=== PATIENT | female | born 1940 | race Caucasian/White ===

== ENCOUNTER 2016-11-20 18:02 | Emergency (ER) | payer MEDICARE, BC ==
[2016-11-20] MEDS ORDERED: Sodium Chloride 0.9% 10 ML Syringe FLUSH PRN (18:45)
[2016-11-20] MEDS ORDERED: Aspirin 81 MG Tab.Chew ONE (18:49)
[2016-11-20] MEDS ORDERED: Aspirin 81 MG Tab.EC PO ONE (18:50)
[2016-11-20] MEDS ORDERED: Aspirin 81 MG Tab.Chew PO ONE ×2 (18:50→19:02)
--- NOTE | 2016-11-20 20:05 | EDM.PDOC ---
ED HISTORY OF PRESENT ILLNESS - General Chief Complaint: Chest Pain Stated Complaint: CHEST PAIN,LEFT ARM Time Seen by Provider: 11/20/16 18:05 Source: Reports: Patient, Family History Limitations: Reports: No limitations - History of Present Illness Symptom Onset Date: 11/20/16 Symptom Onset Time: 17:30 Timing/Duration: Reports: Hour(s): Severity: mild Location, General: Reports: chest, upper extremity, left Quality: Reports: Ache, Throbbing Improves with: Reports: None Worsens with: Reports: None, Other (Patient reports developing chest pressure/ pain with left arm pain after ambulating to the bathroom from the parking lot in [facility] today [employer].) Associated Symptoms: Reports: denies other symptoms Treatment(s) [employer]: Reports: Nitroglycerin Other Treatment(s) [employer]: Nitro x 2 - Related Data Allergies/ADRs: Allergies Allergy/AdvReac Type Severity Reaction Status Date / Time midazolam HCl [From Versed] Allergy Severe Cardiac Verified 11/20/16 18:23 Arrest Iodinated Contrast Media - Allergy Intermediate Hives Verified 11/20/16 18:23 Oral and [Iodinated Contrast Media - IV Dye] dipyridamole Allergy Cannot Verified 11/20/16 18:23 [From Persantine] Remember disopyramide phosphate Allergy Cannot Verified 11/20/16 18:23 [From Norpace] Remember morphine AdvReac Severe Change Verified 11/20/16 18:23 Mental Status Morpholine Analogues AdvReac Severe Delusions Verified 11/20/16 18:23 hydromorphone HCl AdvReac Intermediate Nausea and Verified 11/20/16 18:23 [From Dilaudid] Vomiting atorvastatin calcium AdvReac Muscle Verified 11/20/16 18:23 [From Lipitor] Aches bupropion HCl [From Zyban] AdvReac Hypertensio Verified 11/20/16 18:23 n niacin AdvReac Muscle Verified 11/20/16 18:23 Aches nifedipine AdvReac Muscle Verified 11/20/16 18:23 Aches procainamide AdvReac Muscle Verified 11/20/16 18:23 Aches rofecoxib [From Vioxx] AdvReac Nausea Verified 11/20/16 18:23 Home Meds: Home Meds Aspirin 81 mg PO QAM 04/29/13 [History] Calcitonin,Denton,Synthetic [Calcitonin-Denton] 1 spray RICHIE QAM 04/29/13 [ History] Rosuvastatin [Crestor] 40 mg PO BEDTIME 04/29/13 [History] Nitroglycerin [Nitrostat] 0.4 mg PO ASDIRECTED PRN 01/29/15 [History] Citalopram Hydrobromide [Celexa] 20 mg PO QAM 04/23/15 [History] Mv-Mn/FA/Vit K/Lycop/Lut/Zeaxa [Ocuvite Eye + Multi Tablet] 1 tab PO QAM [History] Ranitidine [Zantac] 150 mg PO BEDTIME #30 tablet 10/18/15 [Rx] Ferrous Sulfate [Slow Release Iron] 325 mg PO BID 03/07/16 [History] Furosemide 40 mg PO DAILY 03/07/16 [History] Lidocaine 5% [Lidoderm 5%] 1 patch TOP DAILY 03/07/16 [History] Polyethylene Glycol 3350 [MiraLAX] 17 g PO DAILY PRN 03/07/16 [History] Sennosides/Docusate Sodium [Sennalax-S] 1 tab PO DAILY PRN 03/07/16 [History] traMADol [Ultram] 50 mg PO BID 03/07/16 [History] Ondansetron [Zofran ODT] 4 mg PO Q8H PRN 06/03/16 [History] Warfarin Sodium 5 mg PO DAILY 06/03/16 [History] traMADol [Ultram] 50 mg PO Q6H PRN 06/03/16 [History] Acetaminophen [Acetaminophen Extra Strength] 1,000 mg PO Q8H PRN 09/19/16 [ History] Calcium Carbonate/Vitamin D3 [Calcium 600 + Vit D Tablet] 1 tab PO BID 09/19/16 [History] Melatonin 3 mg PO BEDTIME 09/19/16 [History] QUEtiapine [SEROquel] 25 mg PO BEDTIME 09/19/16 [History] guaiFENesin/Dextromethorphan [Mucus Relief DM] 1 tab PO Q4H PRN 09/19/16 [ History] Past Medical History HEENT History: Reports: Cataract, Impaired vision Cardiovascular History: Reports: Afib, Angina, Arrhythmia, CAD, Heart murmur, Heart valve replacement, High cholesterol, Hypertension, Pulmonary hypertension , Other (see below) Other Cardiovascular History: stenosis. Aortic valve replacement Respiratory History: Reports: Bronchitis, recurrent, COPD Other Respiratory History: continued tobacco use daily of 4+ cigarettes per day. Gastrointestinal History: Reports: Cholelithiasis, Diverticulosis, GERD, Irritable bowel syndrome Genitourinary History: Reports: Renal disease Other Genitourinary History: stage 3. renal lesion [employer] [place] History: Reports: Dysfunctional uterine bleeding, Musculoskeletal History: Reports: Arthritis, Back pain, chronic, Osteoarthritis , Osteoporosis, Other (see below) Other Musculoskeletal History: Bursitis. cervical pain. muscle spams in neck. 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 Psychiatric History: Reports: Anxiety Other Psychiatric History: family concerns about cognitive impairement Hematologic History: Reports: Anemia, Blood transfusion(s) - Infectious Disease History Infectious Disease History: Reports: Chicken pox, Mumps - Past Surgical History Head Surgeries/Procedures: Reports: None HEENT Surgical History: Reports: Cataract surgery, Oral surgery Other HEENT Surgeries/Procedures: full dentures Cardiovascular Surgical History: Reports: Carotid endarterectomy, Coronary artery bypass, Valve replacement Other Cardiovascular Surgeries/Procedures: CABG 2000 Respiratory Surgical History: Reports: None GI Surgical History: Reports: Appendectomy, Colon, Colonoscopy, EGD Female Surgical History: Reports: Hysterectomy, Salpingo-oophorectomy Neurological Surgical History: Reports: Lumbar spine Other Musculoskeletal Surgeries/Procedures:: Trigger point injections. Social & Family History - Family History Family Medical History: Noncontributory - Tobacco Use Smoking Status *Q: Current Every Day Smoker Years of Tobacco use: 60 Packs/Tins Daily: 0.5 Used Tobacco, but Quit: No Month Tobacco Last Used: 1 Second Hand Smoke Exposure: No - Caffeine Use Caffeine Use: Reports: Coffee Caffeine Use Comment: 10 cups daily - Alcohol Use Days Per Week of Alcohol Use: 0 - Recreational Drug Use Recreational Drug Use: No - Living Situation & Occupation Living situation: Reports: assisted living Occupation: retired ([place], [place] ED [facility] GENERAL - Review of Systems Review Of Systems: See Below Constitutional: Reports: fatigue. Denies: fever, chills, malaise, weakness, diaphoresis, weight loss, weight gain HEENT: Reports: No symptoms Respiratory: Reports: Shortness of Breath, Cough, Sputum, Other (with activity, sputum production clear). Denies: Wheezing Cardiovascular: Reports: Chest pain, Dyspnea on exertion, Edema. Denies: Lightheadedness, Orthopnea, Palpitations, PND, Syncope Endocrine: Reports: no symptoms GI/Abdominal: Reports: No symptoms : Reports: incontinence. Denies: discharge, dysuria, flank pain, frequency, hematuria, pain Musculoskeletal: Reports: shoulder pain, arm pain, other (Left shoulder,arm pain with chest pain. ) Skin: Reports: no symptoms Neurological: Reports: No Symptoms. Denies: Confusion, Dizziness, Headache, Numbness, Syncope Psychiatric: Reports: No symptoms Hematologic/Lymphatic: Reports: other (chronic anemia, history of blood transfusions on a monthly basis.) ED EXAM, GENERAL - Physical Exam Exam: See Below Exam Limited By: No limitations General Appearance: alert, WD/WN, no apparent distress Eye Exam: bilateral eye: normal inspection, PERRL Ears: normal external exam, normal canal, hearing grossly normal, normal TMs Nose: normal inspection, normal mucosa, no blood Throat/Mouth: Normal inspection, Normal lips, Normal teeth, Normal gums, Normal oropharynx, Normal voice, No airway compromise Head: atraumatic, normocephalic Neck: normal inspection, supple, non-tender, full range of motion Respiratory/Chest: no respiratory distress, lungs clear, no accessory muscle use , chest non-tender, other (faint crackles at the bases) Peripheral Pulses: 1+: radial (L), radial (R), dorsalis pedis (L), dorsalis pedis (R) GI/Abdominal: normal bowel sounds, soft, non tender, no organomegaly, no distention, no abnormal bruit, no mass Back Exam: normal inspection Extremities: normal inspection, non-tender, no pedal edema, normal capillary refill, other (Limited range of motion to bilateral upper arms, No trauma. ) Neurological: alert, oriented, CN II-XII intact, normal cognition, normal gait, no motor/sensory deficits Psychiatric: normal affect, normal mood Skin Exam: Warm, Dry, Intact, No rash, Pallor Lymphatic: no adenopathy EKG INTERPRETATION EKG Date: 11/20/16 Time: 18:36 Rhythm: NSR Rate (beats/min): 83 EKG Interpretation Comments: Slight changes to leads II, V5, V6 with increase in ST depression when compared to EKG on 10/16/15. EKG reviewed with Dr. Honeycutt. Course - Vital Signs Last Recorded V/S: Last Vital Signs Temp 95.2 C H 11/20/16 19:00 Pulse 83 11/20/16 20:42 Resp 16 11/20/16 19:46 BP 137/84 11/20/16 20:42 Pulse Ox 98 11/20/16 19:46 - Orders/Labs/Meds Orders: Active Orders 24 hr Category Date Time Status EKG Documentation Completion [RC] ASDIRECTED Care 11/20/16 18:25 Active EKG Documentation Completion [RC] ASDIRECTED Care 11/20/16 19:49 Active Chest 1V Frontal [CR] Stat Exams 11/20/16 18:41 Taken Sodium Chloride 0.9% [Saline Flush] Med 11/20/16 18:45 Active 10 ml FLUSH ASDIRECTED PRN Saline Lock Insert [OM.PC] Routine Oth 11/20/16 18:45 Ordered EKG 12 Lead [EK] Routine Ther 11/20/16 18:25 Ordered EKG 12 Lead [EK] Routine Ther 11/20/16 19:49 Ordered Medication Orders Sodium Chloride (Saline Flush) 10 ml FLUSH ASDIRECTED PRN PRN Reason: Keep Vein Open Last Admin: 11/20/16 20:46 Dose: 10 ml Labs: Laboratory Tests 11/20/16 11/20/16 11/20/16 Range/Units 18:49 18:49 18:49 WBC 11.0 (4.5-11.0) K/uL RBC 2.79 L (3.30-5.50) M/uL Hgb 8.8 L (12.0-15.0) g/dL Hct 27.1 L (36.0-48.0) % MCV 97 (80-98) fL MCH 32 H (27-31) pg MCHC 33 (32-36) % Plt Count 217 (150-400) K/uL Sodium (140-148) mmol/L Potassium (3.6-5.2) mmol/L Chloride (100-108) mmol/L Carbon Dioxide (21-32) mmol/L Anion Gap (5.0-14.0) mmol/L BUN (7-18) mg/dL Creatinine (0.6-1.0) mg/dL Est Cr Clr Drug Dosing mL/min Estimated GFR (MDRD) (>60) Glucose (74-106) mg/dL Calcium (8.5-10.1) mg/dL Total Bilirubin (0.2-1.0) mg/dL AST (15-37) U/L ALT (12-78) U/L Alkaline Phosphatase (46-116) U/L CK-MB (CK-2) 2.6 (0-3.6) mg/mL Troponin I 0.211 H* (0.000-0.056) ng/mL [id number] Pept (5-125) pg/mL Total Protein (6.4-8.2) g/dL Albumin (3.4-5.0) g/dL Globulin (2.3-3.5) g/dL Albumin/Globulin Ratio (1.2-2.2) 11/20/16 11/20/16 Range/Units 18:49 19:32 WBC (4.5-11.0) K/uL RBC (3.30-5.50) M/uL Hgb (12.0-15.0) g/dL Hct (36.0-48.0) % MCV (80-98) fL MCH (27-31) pg MCHC (32-36) % Plt Count (150-400) K/uL Sodium 132 L (140-148) mmol/L Potassium 3.8 (3.6-5.2) mmol/L Chloride 96 L (100-108) mmol/L Carbon Dioxide 27 (21-32) mmol/L Anion Gap 12.8 (5.0-14.0) mmol/L BUN 59 H D (7-18) mg/dL Creatinine 4.0 H* (0.6-1.0) mg/dL Est Cr Clr Drug Dosing 8.86 mL/min Estimated GFR (MDRD) 11 L (>60) Glucose 136 H (74-106) mg/dL Calcium 10.3 H D (8.5-10.1) mg/dL Total Bilirubin 0.7 (0.2-1.0) mg/dL AST 29 (15-37) U/L ALT 30 (12-78) U/L Alkaline Phosphatase 54 (46-116) U/L CK-MB (CK-2) (0-3.6) mg/mL Troponin I (0.000-0.056) ng/mL [id number] Pept [id number] H (5-125) pg/mL Total Protein 7.5 (6.4-8.2) g/dL Albumin 3.6 (3.4-5.0) g/dL Globulin 3.9 H (2.3-3.5) g/dL Albumin/Globulin Ratio 0.9 L (1.2-2.2) Meds: Medications Generic Name Dose Route Start Last Admin Trade Name Freq PRN Reason Stop Dose Admin Sodium Chloride 10 ml 11/20/16 18:45 11/20/16 20:46 Saline Flush FLUSH 10 ml ASDIRECTED PRN Administration Keep Vein Open Discontinued Medications Generic Name Dose Route Start Last Admin Trade Name Freq PRN Reason Stop Dose Admin Aspirin 81 mg 11/20/16 18:50 Aspirin PO 11/20/16 18:51 ONETIME ONE Aspirin 162 mg 11/20/16 18:50 Halfprin PO 11/20/16 18:51 ONETIME ONE Aspirin Confirm 11/20/16 18:49 11/20/16 20:46 Aspirin Administered 11/20/16 18:50 Not Given Dose 324 mg .ROUTE .STK-MED ONE Aspirin 324 mg 11/20/16 19:02 11/20/16 18:45 Aspirin PO 11/20/16 19:03 324 mg ONETIME ONE Administration Metoprolol Tartrate 25 mg 11/20/16 20:34 11/20/16 20:42 Lopressor PO 11/20/16 20:35 25 mg ONETIME ONE Administration - Re-Assessments/Exams Free Text/Narrative Re-Assessment/Exam: 11/20/16 20:39 Patient denies chest pain and reports improvement in left arm pain. Her labwork, chest x-ray and chronic status were reviewed with her, her daughter and Dr. Espino. The patient was advised to be admitted to the hospital for monitoring of chest pain, labwork. Rubina refuses, her daughter is aware. Dr. Espion informed of patient decision. Rubina will be given Metoprolol tartrate 25mg PO in the ER and provided a prescription for Metoprolol tartrate 25mg PO BID. She will follow up with Dr. Brennan as scheduled this coming . She was provided education on use of nitro SL for chest pain, signs and symptoms to watch for with worsening. Rubina and her daughter verbalized understanding. Rubina was offered hospital admission and monitoring a third time, she refused. She was instructed to return for any worsening, SOB, chest pain with radiation to arm, jaw, no relief with nitro SL or for any other concerns. She was strongly encouraged to stop use of tobacco. All questions answered. Departure - Departure Time of Disposition: 20:30 Disposition: Home, Self-Care 01 Preliminary Cause of *Q: sepsis & multi system organ failure Condition: fair Clinical Impression: CHF (congestive heart failure) Instructions: Nonspecific Chest Pain, [id number] Referrals: Nehemiah Brennan MD [Primary Care Provider] - Forms: ED Department Discharge Additional Instructions: Patient was instructed to stop use of tobacco. She needs to return for any worsening of symptoms, shortness of breath, or chest pain. Keep appointment with Dr. Brennan. Take Metoprolol tartrate 25mg PO twice per day. - My Orders Last 24 Hours: My Active Orders 11/20/16 18:25 EKG Documentation Completion [RC] ASDIRECTED EKG 12 Lead [EK] Routine 11/20/16 18:41 Chest 1V Frontal [CR] Stat 11/20/16 18:45 Sodium Chloride 0.9% [Saline Flush] 10 ml FLUSH ASDIRECTED PRN Saline Lock Insert [OM.PC] Routine 11/20/16 19:49 EKG Documentation Completion [RC] ASDIRECTED EKG 12 Lead [EK] Routine - Assessment/Plan Last 24 Hours: My Active Orders 11/20/16 18:25 EKG Documentation Completion [RC] ASDIRECTED EKG 12 Lead [EK] Routine 11/20/16 18:41 Chest 1V Frontal [CR] Stat 11/20/16 18:45 Sodium Chloride 0.9% [Saline Flush] 10 ml FLUSH ASDIRECTED PRN Saline Lock Insert [OM.PC] Routine 11/20/16 19:49 EKG Documentation Completion [RC] ASDIRECTED EKG 12 Lead [EK] Routine
[2016-11-20] MEDS ORDERED: Metoprolol Tartrate 25 MG Tab PO ONE (20:34)
[2016-11-20 20:42] VITALS: BP 137/84
--- NOTE | 2016-11-21 10:27 | CR ---
Portable chest Comparison: June 2016. Findings: There is cardiac enlargement. There is vascular engorgement. Small bilateral pleural effus ions are without significant change. Impression: 1. Mild CHF.
== END 2016-11-20 21:00 | disposition home or self-care (01) ==
LOC: JP.ED 18:02
DX: I50.9 Heart failure, unspecified (principal); I48.91 Unspecified atrial fibrillation; I25.10 Atherosclerotic heart disease of native coronary artery without angina pectoris; I20.9 Angina pectoris, unspecified; E78.00 Pure hypercholesterolemia, unspecified; I27.2 Other secondary pulmonary hypertension; J44.9 Chronic obstructive pulmonary disease, unspecified; K21.9 Gastro-esophageal reflux disease without esophagitis; F41.9 Anxiety disorder, unspecified; F17.210 Nicotine dependence, cigarettes, uncomplicated; Z86.73 Personal history of transient ischemic attack (TIA), and cerebral infarction without residual deficits; Z98.49 Cataract extraction status, unspecified eye; Z95.1 Presence of aortocoronary bypass graft; Z95.2 Presence of prosthetic heart valve; Z90.49 Acquired absence of other specified parts of digestive tract; Z90.710 Acquired absence of both cervix and uterus; Z90.721 Acquired absence of ovaries, unilateral; Z98.890 Other specified postprocedural states; Z79.82 Long term (current) use of aspirin; Z79.01 Long term (current) use of anticoagulants; Z79.899 Other long term (current) drug therapy; Z88.5 Allergy status to narcotic agent; Z88.8 Allergy status to other drugs, medicaments and biological substances; Z91.041 Radiographic dye allergy status
CPT/HCPCS: 36415; 71010; 80053; 82553; 83880; 84484; 85027; 93005; 99285; A9270; J7050; 93010; 99284

== ENCOUNTER 2017-04-21 15:57 | Inpatient (IN) | payer MEDICARE, BC, MEDICAID ==
[2017-04-21] MEDS ORDERED: Sodium Chloride 0.9% 10 ML Syringe FLUSH PRN (16:26)
[2017-04-21] MEDS ORDERED: Furosemide 40 MG/4 ML VIAL IVPUSH ONE (16:27)
--- NOTE | 2017-04-21 16:33 | EDM.PDOC ---
ED HPI GENERAL MEDICAL PROBLEM - General Chief Complaint: Respiratory Problem Stated Complaint: MEDICAL Time Seen by Provider: 04/21/17 16:25 Source of Information: Reports: Patient History Limitations: Reports: No Limitations - History of Present Illness INITIAL COMMENTS - FREE TEXT/NARRATIVE: pt arrived with increased sob and very low o2 sats. Onset: Gradual, Other ( worse today. ) Duration: Day(s): Location: Reports: Chest Associated Symptoms: Reports: Cough, Shortness of Breath - Related Data Allergies Allergy/AdvReac Type Severity Reaction Status Date / Time midazolam HCl [From Versed] Allergy Severe Cardiac Verified 04/21/17 17:14 Arrest Iodinated Contrast- Oral and Allergy Intermediate Hives Verified 04/21/17 17:14 IV Dye [Iodinated Contrast Media - IV Dye] dipyridamole Allergy Cannot Verified 04/21/17 17:14 [From Persantine] Remember disopyramide phosphate Allergy Cannot Verified 04/21/17 17:14 [From Norpace] Remember morphine AdvReac Severe Change Verified 04/21/17 17:14 Mental Status Morpholine Analogues AdvReac Severe Delusions Verified 04/21/17 17:14 hydromorphone HCl AdvReac Intermediate Nausea and Verified 04/21/17 17:14 [From Dilaudid] Vomiting atorvastatin calcium AdvReac Muscle Verified 04/21/17 17:14 [From Lipitor] Aches bupropion HCl [From Zyban] AdvReac Hypertensio Verified 04/21/17 17:14 n niacin AdvReac Muscle Verified 04/21/17 17:14 Aches nifedipine AdvReac Muscle Verified 04/21/17 17:14 Aches procainamide AdvReac Muscle Verified 04/21/17 17:14 Aches rofecoxib [From Vioxx] AdvReac Nausea Verified 04/21/17 17:14 Home Meds: Home Meds Aspirin 81 mg PO QAM 04/29/13 [History] Calcitonin,[place],Synthetic [Calcitonin-[place]] 1 spray RICHIE QAM 04/29/13 [ History] Rosuvastatin [Crestor] 40 mg PO BEDTIME 04/29/13 [History] Nitroglycerin [Nitrostat] 0.4 mg PO ASDIRECTED PRN 01/29/15 [History] Citalopram Hydrobromide [Celexa] 20 mg PO QAM 04/23/15 [History] Mv-Mn/FA/Vit K/Lycop/Lut/Zeaxa [Ocuvite Eye + Multi Tablet] 1 tab PO QAM [History] Ferrous Sulfate [Slow Release Iron] 325 mg PO BID 03/07/16 [History] Furosemide 40 mg PO BID 03/07/16 [History] Lidocaine 5% [Lidoderm 5%] 1 patch TOP DAILY 03/07/16 [History] Polyethylene Glycol 3350 [MiraLAX] 17 g PO DAILY PRN 03/07/16 [History] Sennosides/Docusate Sodium [Sennalax-S] 1 tab PO DAILY PRN 03/07/16 [History] Ondansetron [Zofran ODT] 4 mg PO Q8H PRN 06/03/16 [History] Warfarin Sodium 5 mg PO DAILY 06/03/16 [History] Acetaminophen [Acetaminophen Extra Strength] 1,000 mg PO Q8H PRN 09/19/16 [ History] Calcium Carbonate/Vitamin D3 [Calcium 600 + Vit D Tablet] 1 tab PO BID 09/19/16 [History] guaiFENesin/Dextromethorphan [Mucus Relief DM] 1 tab PO Q4H PRN 09/19/16 [ History] Acetaminophen with Codeine [Tylenol with Codeine #3 Tablet] 1 tab PO BID [History] Acetaminophen with Codeine [Tylenol with Codeine #3 Tablet] 1 tab PO Q4H PRN 08/16 [History] Midodrine 5 mg PO TIDAC 02/24/17 [History] Pentoxifylline [TRENtal] 400 mg PO DAILY 02/24/17 [History] Ranitidine HCl 150 mg PO DAILY 02/24/17 [History] Past Medical History HEENT History: Reports: Cataract, Impaired Vision Cardiovascular History: Reports: Afib, Angina, Arrhythmia, CAD, Heart Murmur, Heart Valve Replacement, High Cholesterol, Hypertension, Pulmonary Hypertension , Other (See Below) Other Cardiovascular History: stenosis. Aortic valve replacement Respiratory History: Reports: Bronchitis, Recurrent, COPD Other Respiratory History: continued tobacco use daily of 4+ cigarettes per day. Gastrointestinal History: Reports: Cholelithiasis, Diverticulosis, GERD, Irritable Bowel Syndrome Genitourinary History: Reports: Renal Disease Other Genitourinary History: stage 3. renal lesion [employer] History: Reports: Dysfunctional Uterine Bleeding, Musculoskeletal History: Reports: Arthritis, Back Pain, Chronic, Osteoarthritis , Osteoporosis, Other (See Below) Other Musculoskeletal History: Bursitis. cervical pain. muscle spams in neck. 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 Psychiatric History: Reports: Anxiety Other Psychiatric History: family concerns about cognitive impairement Hematologic History: Reports: Anemia, Blood Transfusion(s) - Infectious Disease History Infectious Disease History: Reports: Chicken Pox, Mumps - Past Surgical History Head Surgeries/Procedures: Reports: None HEENT Surgical History: Reports: Cataract Surgery, Oral Surgery Cardiovascular Surgical History: Reports: Carotid Endarterectomy, Coronary Artery Bypass, Valve Replacement Female Surgical History: Reports: Hysterectomy, Salpingo-Oophorectomy Neurological Surgical History: Reports: Lumbar Spine Social & Family History - Family History Family Medical History: Noncontributory - Tobacco Use Smoking Status *Q: Current Every Day Smoker Years of Tobacco use: 50 Packs/Tins Daily: 1 Used Tobacco, but Quit: No Month Tobacco Last Used: 1 Second Hand Smoke Exposure: No - Caffeine Use Caffeine Use: Reports: Coffee Caffeine Use Comment: 10 cups daily - Alcohol Use Days Per Week of Alcohol Use: 0 - Recreational Drug Use Recreational Drug Use: No - Living Situation & Occupation Living situation: Reports: Assisted Living Occupation: Retired ED ROS GENERAL - Review of Systems Review Of Systems: See Below Constitutional: Reports: No Symptoms HEENT: Reports: No Symptoms Respiratory: Reports: Shortness of Breath Cardiovascular: Reports: Palpitations Endocrine: Reports: No Symptoms GI/Abdominal: Reports: No Symptoms : Reports: No Symptoms Musculoskeletal: Reports: No Symptoms Skin: Reports: No Symptoms ED EXAM, GENERAL - Physical Exam Exam: See Below Free Text/Narrative:: pt arrived with increased sob and raising thick sputum. She had o2 sats in the 60s today. She has alittle extra swelling in her legs and she has been more sob. Exam Limited By: No Limitations General Appearance: Alert, Moderate Distress Ears: Normal TMs Nose: Normal Inspection Throat/Mouth: Normal Inspection Head: Atraumatic Neck: Other ( distended neck veinc,) Respiratory/Chest: Decreased Breath Sounds, Crackles Cardiovascular: Regular Rate, Rhythm GI/Abdominal: Soft, Non-Tender (Female) Exam: Deferred Rectal (Female) Exam: Deferred Back Exam: Normal Inspection Extremities: Normal Inspection Neurological: Alert, Oriented, Normal Cognition, Other (pt is quite sleepy ) Course - Vital Signs Last Recorded V/S: Last Vital Signs Temp 35.8 C 04/21/17 16:17 Pulse 57 L 04/21/17 16:17 Resp 14 04/21/17 16:17 BP 117/67 04/21/17 17:10 Pulse Ox 97 04/21/17 16:17 - Orders/Labs/Meds Orders: Active Orders 24 hr Category Date Time Status EKG Documentation Completion [RC] ASDIRECTED Care 04/21/17 16:28 Active Chest 2V [CR] Stat Exams 04/21/17 16:26 Taken ABG [BLOOD GAS ARTERIAL] [BG] Stat Lab 04/21/17 17:10 Ordered COMPREHENSIVE METABOLIC PN,CMP [CHEM] Urgent Lab 04/21/17 16:25 Received CULTURE RESPIRATORY + SMEAR [RM] Stat Lab 04/21/17 17:13 Received PRO B-TYPE NATRIUR PEPT,BNPPRO [CHEM] Urgent Lab 04/21/17 16:25 Received UA W/MICROSCOPIC [URIN] Urgent Lab 04/21/17 16:25 Uncollected Sodium Chloride 0.9% [Saline Flush] Med 04/21/17 16:26 Active 10 ml FLUSH ASDIRECTED PRN Saline Lock Insert [OM.PC] Routine Oth 04/21/17 16:26 Ordered EKG 12 Lead [EK] Routine Ther 04/21/17 16:28 Ordered Medication Orders Sodium Chloride (Saline Flush) 10 ml FLUSH ASDIRECTED PRN PRN Reason: Keep Vein Open Last Admin: 04/21/17 17:10 Dose: 10 ml Labs: Laboratory Tests 04/21/17 Range/Units 16:25 WBC 11.0 (4.5-11.0) K/uL RBC 2.88 L (3.30-5.50) M/uL Hgb 9.3 L (12.0-15.0) g/dL Hct 28.6 L (36.0-48.0) % MCV 99 H (80-98) fL MCH 32 H (27-31) pg MCHC 33 (32-36) % Plt Count 202 (150-400) K/uL Neut % (Auto) 86 H (36-66) % Lymph % (Auto) 6 L (24-44) % [place] % (Auto) 8 H (2-6) % Eos % (Auto) 0 L (2-4) % Baso % (Auto) 0 (0-1) % Meds: Medications Generic Name Dose Route Start Last Admin Trade Name Freq PRN Reason Stop Dose Admin Sodium Chloride 10 ml 04/21/17 16:26 04/21/17 17:10 Saline Flush FLUSH 10 ml ASDIRECTED PRN Administration Keep Vein Open Discontinued Medications Generic Name Dose Route Start Last Admin Trade Name Freq PRN Reason Stop Dose Admin Furosemide 60 mg 04/21/17 16:27 04/21/17 17:10 Lasix IVPUSH 04/21/17 16:28 60 mg ONETIME ONE Administration - Re-Assessments/Exams Free Text/Narrative Re-Assessment/Exam: 04/21/17 17:40 pt has a elevated bun and creatnine. Her face is puffy. She is coughing up some grayish sputum. Departure - Departure Time of Disposition: 17:51 Disposition: Admitted As Inpatient 68 Condition: Fair Clinical Impression: CHF (congestive heart failure), Pneumonia - Discharge Information Referrals: Nehemiah Brennan MD [Primary Care Provider] - Forms: ED Department Discharge Care Plan Goals: admit to Dr collier. - My Orders Last 24 Hours: My Active Orders 04/21/17 16:25 COMPREHENSIVE METABOLIC PN,CMP [CHEM] Urgent PRO B-TYPE NATRIUR PEPT,BNPPRO [CHEM] Urgent UA W/MICROSCOPIC [URIN] Urgent 04/21/17 16:26 Chest 2V [CR] Stat Sodium Chloride 0.9% [Saline Flush] 10 ml FLUSH ASDIRECTED PRN Saline Lock Insert [OM.PC] Routine 04/21/17 16:28 EKG Documentation Completion [RC] ASDIRECTED EKG 12 Lead [EK] Routine 04/21/17 17:10 ABG [BLOOD GAS ARTERIAL] [BG] Stat 04/21/17 17:13 CULTURE RESPIRATORY + SMEAR [RM] Stat - Assessment/Plan Last 24 Hours: My Active Orders 04/21/17 16:25 COMPREHENSIVE METABOLIC PN,CMP [CHEM] Urgent PRO B-TYPE NATRIUR PEPT,BNPPRO [CHEM] Urgent UA W/MICROSCOPIC [URIN] Urgent 04/21/17 16:26 Chest 2V [CR] Stat Sodium Chloride 0.9% [Saline Flush] 10 ml FLUSH ASDIRECTED PRN Saline Lock Insert [OM.PC] Routine 04/21/17 16:28 EKG Documentation Completion [RC] ASDIRECTED EKG 12 Lead [EK] Routine 04/21/17 17:10 ABG [BLOOD GAS ARTERIAL] [BG] Stat 04/21/17 17:13 CULTURE RESPIRATORY + SMEAR [RM] Stat
--- NOTE | 2017-04-21 20:18 | PCM.HP ---
H&P History of Present Illness - General Date of Service: 04/21/17 Admit Problem/Dx: Admission Diagnosis/Problem Admission Diagnosis/Problem Pneumonia Source of Information: Patient, Family (Daughter Wendi), Provider, RN History Limitations: Reports: No Limitations - History of Present Illness Onset of Symptoms: Reports: Gradual (over the past 3 days, worsen shortness of breath and chills) Duration of Symptoms: Reports: Day(s): (3) Location: Reports: Generalized Severity: Moderate Improves with: Reports: None Worsens with: Reports: Movement Associated Symptoms: Reports: Cough, Fever/Chills, Loss of Appetite, Shortness of Breath, Weakness - Related Data Allergies/Adverse Reactions: Allergies Allergy/AdvReac Type Severity Reaction Status Date / Time midazolam HCl [From Versed] Allergy Severe Cardiac Verified 04/21/17 17:14 Arrest Iodinated Contrast- Oral and Allergy Intermediate Hives Verified 04/21/17 17:14 IV Dye [Iodinated Contrast Media - IV Dye] dipyridamole Allergy Cannot Verified 04/21/17 17:14 [From Persantine] Remember disopyramide phosphate Allergy Cannot Verified 04/21/17 17:14 [From Norpace] Remember morphine AdvReac Severe Change Verified 04/21/17 17:14 Mental Status Morpholine Analogues AdvReac Severe Delusions Verified 04/21/17 17:14 hydromorphone HCl AdvReac Intermediate Nausea and Verified 04/21/17 17:14 [From Dilaudid] Vomiting atorvastatin calcium AdvReac Muscle Verified 04/21/17 17:14 [From Lipitor] Aches bupropion HCl [From Zyban] AdvReac Hypertensio Verified 04/21/17 17:14 n niacin AdvReac Muscle Verified 04/21/17 17:14 Aches nifedipine AdvReac Muscle Verified 04/21/17 17:14 Aches procainamide AdvReac Muscle Verified 04/21/17 17:14 Aches rofecoxib [From Vioxx] AdvReac Nausea Verified 04/21/17 17:14 Home Medications: Home Meds Aspirin 81 mg PO QAM 04/29/13 [History] Calcitonin,Gates,Synthetic [Calcitonin-Gates] 1 spray RICHIE QAM 04/29/13 [ History] Rosuvastatin [Crestor] 40 mg PO BEDTIME 04/29/13 [History] Nitroglycerin [Nitrostat] 0.4 mg PO ASDIRECTED PRN 01/29/15 [History] Citalopram Hydrobromide [Celexa] 20 mg PO QAM 04/23/15 [History] Mv-Mn/FA/Vit K/Lycop/Lut/Zeaxa [Ocuvite Eye + Multi Tablet] 1 tab PO QAM [History] Ferrous Sulfate [Slow Release Iron] 325 mg PO BID 03/07/16 [History] Furosemide 40 mg PO BID 03/07/16 [History] Lidocaine 5% [Lidoderm 5%] 1 patch TOP DAILY 03/07/16 [History] Polyethylene Glycol 3350 [MiraLAX] 17 g PO DAILY PRN 03/07/16 [History] Sennosides/Docusate Sodium [Sennalax-S] 1 tab PO DAILY PRN 03/07/16 [History] Ondansetron [Zofran ODT] 4 mg PO Q8H PRN 06/03/16 [History] Warfarin Sodium 5 mg PO DAILY 06/03/16 [History] Acetaminophen [Acetaminophen Extra Strength] 1,000 mg PO Q8H PRN 09/19/16 [ History] Calcium Carbonate/Vitamin D3 [Calcium 600 + Vit D Tablet] 1 tab PO BID 09/19/16 [History] guaiFENesin/Dextromethorphan [Mucus Relief DM] 1 tab PO Q4H PRN 09/19/16 [ History] Acetaminophen with Codeine [Tylenol with Codeine #3 Tablet] 1 tab PO BID [History] Acetaminophen with Codeine [Tylenol with Codeine #3 Tablet] 1 tab PO Q4H PRN 08/16 [History] Midodrine 5 mg PO TIDAC 02/24/17 [History] Pentoxifylline [TRENtal] 400 mg PO DAILY 02/24/17 [History] Ranitidine HCl 150 mg PO DAILY 02/24/17 [History] Past Medical History HEENT History: Reports: Cataract, Impaired Vision Cardiovascular History: Reports: Afib, Angina, Arrhythmia, CAD, Heart Murmur, Heart Valve Replacement, High Cholesterol, Hypertension, Pulmonary Hypertension , Other (See Below) Other Cardiovascular History: stenosis. Aortic valve replacement Respiratory History: Reports: Bronchitis, Recurrent, COPD Other Respiratory History: continued tobacco use daily of 4+ cigarettes per day. Gastrointestinal History: Reports: Cholelithiasis, Diverticulosis, GERD, Irritable Bowel Syndrome Genitourinary History: Reports: Renal Disease Other Genitourinary History: stage 3. renal lesion RESEARCH AND DEVELOPMENT RESEARCHER History: Reports: Dysfunctional Uterine Bleeding, Musculoskeletal History: Reports: Arthritis, Back Pain, Chronic, Osteoarthritis , Osteoporosis, Other (See Below) Other Musculoskeletal History: Bursitis. cervical pain. muscle spams in neck. 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 Psychiatric History: Reports: Anxiety Other Psychiatric History: family concerns about cognitive impairement Hematologic History: Reports: Anemia, Blood Transfusion(s) - Infectious Disease History Infectious Disease History: Reports: Chicken Pox, Mumps - Past Surgical History Head Surgeries/Procedures: Reports: None HEENT Surgical History: Reports: Cataract Surgery, Oral Surgery Cardiovascular Surgical History: Reports: Carotid Endarterectomy, Coronary Artery Bypass, Valve Replacement Female Surgical History: Reports: Hysterectomy, Salpingo-Oophorectomy Neurological Surgical History: Reports: Lumbar Spine Social & Family History - Family History Family Medical History: Noncontributory - Tobacco Use Smoking Status *Q: Current Every Day Smoker Years of Tobacco use: 50 Packs/Tins Daily: 1 Used Tobacco, but Quit: No Month Tobacco Last Used: 1 Second Hand Smoke Exposure: No - Caffeine Use Caffeine Use: Reports: Coffee Caffeine Use Comment: 10 cups daily - Alcohol Use Days Per Week of Alcohol Use: 0 - Recreational Drug Use Recreational Drug Use: No - Living Situation & Occupation Living situation: Reports: Assisted Living 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[employer], 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, has one Daughter and two Sons.) H&P Review of Systems - Review of Systems: Review Of Systems: See Below General: Reports: Chills, Malaise, Weakness HEENT: Reports: Glasses Pulmonary: Reports: Shortness of Breath, Wheezing, Pleuritic Chest Pain, Cough, Sputum Cardiovascular: Reports: Dyspnea on Exertion, Orthopnea, Edema (controlled with AIYANA hose) Gastrointestinal: Reports: No Symptoms Genitourinary: Reports: No Symptoms, Other (Kidney disease stage V) Musculoskeletal: Reports: No Symptoms Skin: Reports: No Symptoms Psychiatric: Reports: No Symptoms Neurological: Reports: No Symptoms Hematologic/Lymphatic: Reports: Anemia Immunologic: Reports: Other (multi medication allergies) Exam - Exam Exam: See Below - Vital Signs Vital Signs: Last Vital Signs Temp 35.8 C 04/21/17 16:17 Pulse 59 L 04/21/17 18:05 Resp 16 04/21/17 18:05 BP 119/62 04/21/17 18:05 Pulse Ox 95 04/21/17 18:05 Weight: 48.8 kg - Exam Quality Assessment: Supplemental Oxygen General: Alert, Cooperative, Mild Distress HEENT: PERRLA, Conjunctiva Clear, EOMI, Hearing Intact, Glasses Neck: Supple, Trachea Midline Lungs: Decreased Breath Sounds, Rales, Rhonchi, Wheezing Cardiovascular: Normal S1, Normal S2, Other (clicks noted from artificial valve) GI/Abdominal Exam: Normal Bowel Sounds, Soft, Non-Tender, Distended (Female) Exam: Deferred Rectal (Female) Exam: Deferred Back Exam: Normal Inspection, Full Range of Motion, Other (kyphosis) Extremities: Non-Tender, Other (compression stocking ) Peripheral Pulses: 2+: Radial (L), Radial (R) Skin: Warm, Dry, Intact Neurological: Reflexes Equal Bilateral, Strength Equal Bilateral, Normal Speech , Normal Tone Neuro Extensive - Mental Status: Alert, Normal Mood/Affect Psychiatric: Alert, Normal Affect, Normal Mood Physical Exam Comments:: This is a pleasant frail appearing female, cooperative, frequent harsh cough is noted with thick pale green sputum. she offers no complaints except for cough. - Patient Data Lab Results Last 24 hrs: Laboratory Results - last 24 hr 04/21/17 04/21/17 04/21/17 Range/Units 16:25 16:25 17:48 WBC 11.0 (4.5-11.0) K/uL RBC 2.88 L (3.30-5.50) M/uL Hgb 9.3 L (12.0-15.0) g/dL Hct 28.6 L (36.0-48.0) % MCV 99 H (80-98) fL MCH 32 H (27-31) pg MCHC 33 (32-36) % Plt Count 202 (150-400) K/uL Neut % (Auto) 86 H (36-66) % Lymph % (Auto) 6 L (24-44) % [place] % (Auto) 8 H (2-6) % Eos % (Auto) 0 L (2-4) % Baso % (Auto) 0 (0-1) % Puncture Site Lt radial ABG pH 7.339 L (7.350-7.450) ABG pCO2 46.0 H (35.0-42.0) mmHg ABG pO2 89.3 (75.0-100.0) mmHg ABG HCO3 24.1 (22.0-26.0) mmol/L ABG Total CO2 13.0 L (21.0-25.0) mmol/L ABG O2 Saturation 96.6 (95.0-98.0) % ABG O2 Content 22.7 (15.0-23.0) %vol ABG Base Excess -1.2 mm/L ABG Hemoglobin 9.8 L (12.0-16.0) g/dL ABG Oxyhemoglobin 93.2 % ABG Carboxyhemoglobin 2.8 H (0.0-1.6) % ABG Methemoglobin 0.7 % Chaka Test Passed O2 Delivery Device Nasal cannula Sodium 127 L (140-148) mmol/L Potassium 4.6 (3.6-5.2) mmol/L Chloride 90 L (100-108) mmol/L Carbon Dioxide 27 (21-32) mmol/L Anion Gap 14.6 H (5.0-14.0) mmol/L BUN 91 H* D (7-18) mg/dL Creatinine 5.1 H* (0.6-1.0) mg/dL Est Cr Clr Drug Dosing 6.85 mL/min Estimated GFR (MDRD) 8 L (>60) Glucose 97 (74-106) mg/dL Calcium 10.1 (8.5-10.1) mg/dL Total Bilirubin 0.7 (0.2-1.0) mg/dL AST 70 H D (15-37) U/L ALT 100 H (12-78) U/L Alkaline Phosphatase 129 H D (46-116) U/L NT-Pro-B Natriuret Pep [id number] H (5-450) pg/mL Total Protein 7.7 (6.4-8.2) g/dL Albumin 3.1 L (3.4-5.0) g/dL Globulin 4.6 H (2.3-3.5) g/dL Albumin/Globulin Ratio 0.7 L (1.2-2.2) Urine Color Urine Appearance Urine pH (4.5-8.0) Ur Specific [place] (1.008-1.030) Urine Protein (NEGATIVE) mg/dL Urine Glucose (UA) (NEGATIVE) mg/dL Urine Ketones (NEGATIVE) mg/dL Urine Occult Blood (NEGATIVE) Urine Nitrite (NEGATIVE) Urine Bilirubin (NEGATIVE) Urine Urobilinogen (NORMAL) mg/dL Ur Leukocyte Esterase (NEGATIVE) Urine RBC (0-5) Urine WBC (0-5) Ur Epithelial Cells Amorphous Sediment Urine Bacteria Urine Mucus 04/21/17 Range/Units 19:50 WBC (4.5-11.0) K/uL RBC (3.30-5.50) M/uL Hgb (12.0-15.0) g/dL Hct (36.0-48.0) % MCV (80-98) fL MCH (27-31) pg MCHC (32-36) % Plt Count (150-400) K/uL Neut % (Auto) (36-66) % Lymph % (Auto) (24-44) % [place] % (Auto) (2-6) % Eos % (Auto) (2-4) % Baso % (Auto) (0-1) % Puncture Site ABG pH (7.350-7.450) ABG pCO2 (35.0-42.0) mmHg ABG pO2 (75.0-100.0) mmHg ABG HCO3 (22.0-26.0) mmol/L ABG Total CO2 (21.0-25.0) mmol/L ABG O2 Saturation (95.0-98.0) % ABG O2 Content (15.0-23.0) %vol ABG Base Excess mm/L ABG Hemoglobin (12.0-16.0) g/dL ABG Oxyhemoglobin % ABG Carboxyhemoglobin (0.0-1.6) % ABG Methemoglobin % Chaka Test O2 Delivery Device Sodium (140-148) mmol/L Potassium (3.6-5.2) mmol/L Chloride (100-108) mmol/L Carbon Dioxide (21-32) mmol/L Anion Gap (5.0-14.0) mmol/L BUN (7-18) mg/dL Creatinine (0.6-1.0) mg/dL Est Cr Clr Drug Dosing mL/min Estimated GFR (MDRD) (>60) Glucose (74-106) mg/dL Calcium (8.5-10.1) mg/dL Total Bilirubin (0.2-1.0) mg/dL AST (15-37) U/L ALT (12-78) U/L Alkaline Phosphatase (46-116) U/L NT-Pro-B Natriuret Pep (5-450) pg/mL Total Protein (6.4-8.2) g/dL Albumin (3.4-5.0) g/dL Globulin (2.3-3.5) g/dL Albumin/Globulin Ratio (1.2-2.2) Urine Color Yellow Urine Appearance Cloudy Urine pH 6.0 (4.5-8.0) Ur Specific [place] 1.015 (1.008-1.030) Urine Protein 100 H (NEGATIVE) mg/dL Urine Glucose (UA) Normal (NEGATIVE) mg/dL Urine Ketones Negative (NEGATIVE) mg/dL Urine Occult Blood Large (NEGATIVE) Urine Nitrite Negative (NEGATIVE) Urine Bilirubin Negative (NEGATIVE) Urine Urobilinogen Normal (NORMAL) mg/dL Ur Leukocyte Esterase Moderate (NEGATIVE) Urine RBC 0-5 (0-5) Urine WBC 10-20 H (0-5) Ur Epithelial Cells Moderate Amorphous Sediment Moderate Urine Bacteria Few Urine Mucus Few Result Diagrams: 04/21/17 16:25 04/21/17 16:25 [place] Results Last 24 hrs: Microbiology 04/21/17 17:13 Gram Stain - Final Sputum - Expectorated *Q Meaningful Use (ADM) - VTE *Q VTE Criteria *Q: - Stroke *Q Stroke Criteria *Q: - AMI *Q AMI Criteria *Q: - Problem List (1) CKD (chronic kidney disease) stage 5, GFR less than 15 ml/min SNOMED Code(s): 770186925 ICD Code: N18.5 - CHRONIC KIDNEY DISEASE, STAGE 5 Status: Acute Priority : High Current Visit: Yes (2) CHF (congestive heart failure) SNOMED Code(s): 60430106 ICD Code: I50.9 - HEART FAILURE, UNSPECIFIED Status: Acute Priority: High Current Visit: Yes Qualifiers: Congestive heart failure type: unspecified congestive heart failure type Congestive heart failure chronicity: acute on chronic Qualified Code(s): I50.9 - Heart failure, unspecified (3) Pneumonia SNOMED Code(s): 556978449 ICD Code: J18.9 - PNEUMONIA, UNSPECIFIED ORGANISM Status: Acute Priority : High Current Visit: Yes Qualifiers: Laterality: right (4) Anemia due to chronic kidney disease SNOMED Code(s): 798161261 ICD Code: N18.9 - CHRONIC KIDNEY DISEASE, UNSPECIFIED; D63.1 - ANEMIA IN CHRONIC KIDNEY DISEASE Status: Acute Priority: High Current Visit: Yes Problem List Initiated/Reviewed/Updated: Yes Orders Last 24hrs: Active Orders 24 hr Category Date Time Status Patient Status Manage Transfer [TRANSFER] Routine ADT 04/21/17 19:44 Ordered EKG Documentation Completion [RC] ASDIRECTED Care 04/21/17 16:28 Active Chest 2V [CR] Stat Exams 04/21/17 16:26 Taken CULTURE BLOOD [BC] Urgent Lab 04/21/17 17:35 Received CULTURE BLOOD [BC] Urgent Lab 04/21/17 17:45 Received CULTURE RESPIRATORY + SMEAR [RM] Stat Lab 04/21/17 17:13 Results Sodium Chloride 0.9% [Saline Flush] Med 04/21/17 16:26 Active 10 ml FLUSH ASDIRECTED PRN Blood Culture x2 Reflex Set [OM.PC] Urgent Oth 04/21/17 17:49 Ordered Saline Lock Insert [OM.PC] Routine Oth 04/21/17 16:26 Ordered Resuscitation Status Routine Resus Stat 04/21/17 19:46 Ordered EKG 12 Lead [EK] Routine Ther 04/21/17 16:28 Ordered Medication Orders Sodium Chloride (Saline Flush) 10 ml FLUSH ASDIRECTED PRN PRN Reason: Keep Vein Open Last Admin: 04/21/17 17:10 Dose: 10 ml Assessment/Plan Comment:: ASSESSMENT / PLAN -This is a 77 Female present to ER via EMS with complaints of Shortness of Breath, low oxygen saturation. She report over the past 3 days worsen of breathing and increased cough. Has fatigue, chills, lack of appetite. EMS reports oxygen sat 60's, but recovered well with supplemental oxygen. Chest xray show infiltrate. LABS: sputum culture >20 WBC , numerous gram positive cocci pares, occasion gram positive and negative rods. Na+127, K+4.6, Cl90, anion gap 14.6, BUN 91, Cr. 5.1, Cr Clr 6.85, GFR 8, Glucose 97, Calcium 10.1, Total Bilirubin 0.7, AST 70, Alt 100, Alk Phos 129, Pro-BNP [id number], Total Protein 7.7, Albumin 3.1, Globulin 4.6, Albumin 3.1, albumin/globulin ration 0.7. Urine and ABG's She has a past history of Chronic Kidney Disease Stage IV, last CR 3.6 and GFR 13. Today increase in Cr. 5.1 GFR 8. Plan Pneumonia -Admit to ICU Med-Surg overflow for further monitoring -saline lock -IV Antibiotic; Levaquin 750mg IV once -Duonebs scheduled -Albuterol nebs every 4 hours prn shortness of breath, wheezing -Robitussin DM 10 ml every 4 hours prn cough -Advise to notify nurses of any chest pain or other symptoms -blood cultures x2 pending -And a.m. labs: CBC, BMP CKD stage V, GFR <10 -Lasix 40mg po bid -Family declines dialysis, requesting medical management Congestive Heart Failure -diuretics Lasix 60mg IV in ER -Telemetry -continuous oxygen via NC to keep sats>92% Anemia due to CKD -Iron po bid -recheck CBC, BMP in am Maintenance issues -Orders home meds: -Nutrition: Regular diet, Boost supplement daily -Chiang catheter not indicated at this time -DVT: current Coumadin Therapy -PPI; IV Protonix 40mg daily CODE STATUS: DNR/DNI, will discuss Comfort Care with MD in am Admission status: Admit to ICU Med-Surg overflow] Admission justification. This patient is admitted for inpatient services and is medically appropriate meeting medical necessity for inpatient admission as outlined in my documentation. I reasonably expect the patient will require inpatient services that span a period of over 2 midnights. I reasonably expect the patient to be discharged or transferred within 96 hours after admission to the critical access hospital. Disposition; Assisted Living or [facility] Primary care provider: Dr. Brennan Hospitalist: Dr. Espino
[2017-04-21] MEDS ORDERED: Levofloxacin/Dextrose 5%-Water 750 MG in Premix Bag 1 BAG IV ONE (20:47)
[2017-04-21] MEDS ORDERED: Polyethylene Glycol 3350 Powder 17 GM Packet PO PRN (20:47)
[2017-04-21] MEDS ORDERED: Ondansetron 4 MG/2 ML SDV IV PRN (20:47)
[2017-04-21] MEDS ORDERED: Bisacodyl 5 MG Tab PO PRN (20:47)
[2017-04-21] MEDS ORDERED: Ondansetron 4 MG Tab.DIS PO PRN (20:47)
[2017-04-21] MEDS ORDERED: Docusate Sodium 100 MG Cap PO PRN (20:47)
[2017-04-21] MEDS ORDERED: Acetaminophen/Codeine 300-30 MG Tab PO PRN (20:47)
[2017-04-21] MEDS ORDERED: guaiFENesin/Dextromethorphan 100-10 MG/5 ML Soln 10 ML Cup PO PRN (20:47)
[2017-04-21] MEDS ORDERED: Acetaminophen 325 MG Tab PO PRN (20:47)
[2017-04-21] MEDS ORDERED: Albuterol 0.083% 2.5 MG/3 ML Neb Soln NEB PRN (20:47)
[2017-04-21] MEDS ORDERED: Furosemide 20 MG Tab PO SCH (21:00)
[2017-04-21] MEDS: Acetaminophen/Codeine 300-30 MG Tab PO SCH (21:30)
[2017-04-21] MEDS ORDERED: Albuterol/Ipratropium 3.0-0.5 MG/3 ML Neb Soln NEB SCH (22:00)
[2017-04-22] MEDS: Albuterol/Ipratropium 3.0-0.5 MG/3 ML Neb Soln NEB SCH ×4 (07:06→20:30)
[2017-04-22] MEDS ORDERED: Furosemide 40 MG Tab PO SCH (08:00)
[2017-04-22] MEDS: Ferrous Sulfate 325 MG Tab PO SCH ×2 (08:24→16:34)
[2017-04-22] MEDS: Pentoxifylline 400 MG Tab.ER PO SCH (08:24)
[2017-04-22] MEDS: Midodrine 5 MG Tab PO SCH ×3 (08:24→16:34)
[2017-04-22] MEDS: Lidocaine 5% 700 MG Patch TOP SCH (08:25)
[2017-04-22] MEDS: Citalopram 20 MG Tab PO SCH (08:25)
[2017-04-22] MEDS: Pantoprazole 40 MG Vial IVPUSH SCH (08:25)
[2017-04-22] MEDS ORDERED: Bumetanide 1 MG/4 ML MDV IVPUSH ONE (08:37)
[2017-04-22] MEDS: Acetaminophen/Codeine 300-30 MG Tab PO SCH ×2 (08:46→20:30)
[2017-04-22] MEDS ORDERED: Bumetanide 2.5 MG/10 ML MDV IVPUSH ONE (09:00)
[2017-04-22] MEDS ORDERED: Warfarin 5 MG Tab PO SCH ×2 (09:00→13:00)
--- NOTE | 2017-04-22 09:55 | PCM.PN ---
- General Info Date of Service: 04/22/17 Functional Status: Reports: Pain Controlled, Tolerating Diet - Review of Systems General: Reports: Weakness. Denies: Fever, Chills Pulmonary: Reports: Shortness of Breath, Cough, Wheezing. Denies: Pleuritic Chest Pain, Sputum, Hemoptysis Cardiovascular: Reports: Dyspnea on Exertion. Denies: Chest Pain, Palpitations , Orthopnea, PND, Edema Gastrointestinal: Reports: No Symptoms Psychiatric: Reports: Confusion Systems Review Comment:: Ms. Middleton is a 77-year-old woman who is admitted through the emergency department last night with pulmonary edema, possible pneumonia, and end-stage renal failure. She has had ongoing difficulty with renal compromise, currently has stage V renal failure with an estimated GFR of 9. She does have a fistula in her right arm but apparently has decided previously not pursue dialysis. She is modestly improved since admission and with IV diuretics did have a modest diuresis. She is confused because of her underlying dementia. - Patient Data Vitals - Most Recent: Last Vital Signs Temp 97.5 F 04/22/17 08:13 Pulse 63 04/22/17 08:13 Resp 16 04/22/17 08:13 BP 97/56 L 04/22/17 08:13 Pulse Ox 96 04/22/17 08:13 Weight - Most Recent: 107 lb 9.369 oz I&O - Last 24 Hours: Intake & Output 04/21/17 04/22/17 04/22/17 22:59 06:59 14:59 Intake Total 510 Output Total 300 800 Balance -300 -290 Lab Results Last 24 Hours: Laboratory Results - last 24 hr 04/21/17 04/22/17 04/22/17 Range/Units 19:50 05:44 05:44 WBC 8.2 (4.5-11.0) K/uL RBC 2.50 L (3.30-5.50) M/uL Hgb 8.4 L (12.0-15.0) g/dL Hct 24.8 L (36.0-48.0) % MCV 99 H (80-98) fL MCH 34 H (27-31) pg MCHC 34 (32-36) % Plt Count 196 (150-400) K/uL Neut % (Auto) 84 H (36-66) % Lymph % (Auto) 7 L (24-44) % [place] % (Auto) 8 H (2-6) % Eos % (Auto) 0 L (2-4) % Baso % (Auto) 0 (0-1) % Sodium 127 L (140-148) mmol/L Potassium 4.2 (3.6-5.2) mmol/L Chloride 91 L (100-108) mmol/L Carbon Dioxide 25 (21-32) mmol/L Anion Gap 15.2 H (5.0-14.0) mmol/L BUN 90 H* (7-18) mg/dL Creatinine 4.9 H* (0.6-1.0) mg/dL Est Cr Clr Drug Dosing 7.12 mL/min Estimated GFR (MDRD) 9 L (>60) Glucose 87 (74-106) mg/dL Calcium 9.3 (8.5-10.1) mg/dL Urine Color Yellow Urine Appearance Cloudy Urine pH 6.0 (4.5-8.0) Ur Specific [place] 1.015 (1.008-1.030) Urine Protein 100 H (NEGATIVE) mg/dL Urine Glucose (UA) Normal (NEGATIVE) mg/dL Urine Ketones Negative (NEGATIVE) mg/dL Urine Occult Blood Large (NEGATIVE) Urine Nitrite Negative (NEGATIVE) Urine Bilirubin Negative (NEGATIVE) Urine Urobilinogen Normal (NORMAL) mg/dL Ur Leukocyte Esterase Moderate (NEGATIVE) Urine RBC 0-5 (0-5) Urine WBC 10-20 H (0-5) Ur Epithelial Cells Moderate Amorphous Sediment Moderate Urine Bacteria Few Urine Mucus Few Med Orders - Current: Current Medications Acetaminophen (Tylenol) 650 mg PO Q4H PRN PRN Reason: Pain (Mild 1-3)/fever Acetaminophen/Codeine Phosphate (Tylenol With Codeine No.3 300mg/30mg) 1 tab PO BID [facility] Last Admin: 04/22/17 08:46 Dose: 1 tab Acetaminophen/Codeine Phosphate (Tylenol With Codeine No.3 300mg/30mg) 1 tab PO Q4H PRN PRN Reason: Pain Albuterol (Proventil Neb Soln) 2.5 mg NEB Q4H PRN PRN Reason: Shortness Of Breath/wheezing Albuterol/Ipratropium (Duoneb 3.0-0.5 Mg/3 Ml) 3 ml NEB QIDRT [facility] Last Admin: 04/22/17 07:06 Dose: 3 ml Bisacodyl (Dulcolax) 5 mg PO DAILY PRN PRN Reason: Constipation Citalopram Hydrobromide (Celexa) 20 mg PO DAILY [facility] Last Admin: 04/22/17 08:25 Dose: 20 mg Docusate Sodium (Colace) 100 mg PO BID PRN PRN Reason: Constipation Ferrous Sulfate (Ferrous Sulfate) 325 mg PO BIDMEALS [facility] Last Admin: 04/22/17 08:24 Dose: 325 mg Guaifenesin/Dextromethorphan (Robitussin Dm) 10 ml PO Q4H PRN PRN Reason: Cough Lidocaine (Lidoderm 5%) 700 mg TOP DAILY [facility] Last Admin: 04/22/17 08:25 Dose: 700 mg Midodrine (Midodrine) 5 mg PO TIDAC [facility] Last Admin: 04/22/17 08:24 Dose: 5 mg Miscellaneous Information (Remove Patch) 1 ea TRDERM BEDTIME [facility] Ondansetron HCl (Zofran Odt) 4 mg PO Q6H PRN PRN Reason: Nausea able to take PO Ondansetron HCl (Zofran) 4 mg IV Q4H PRN PRN Reason: Nausea/Vomiting Pantoprazole Sodium (Protonix Iv) 40 mg IVPUSH DAILY [facility] Last Admin: 04/22/17 08:25 Dose: 40 mg Pentoxifylline (Trental) 400 mg PO DAILY [facility] Last Admin: 04/22/17 08:24 Dose: 400 mg Polyethylene Glycol (Miralax) 17 gm PO DAILY PRN PRN Reason: Constipation Sodium Chloride (Saline Flush) 10 ml FLUSH ASDIRECTED PRN PRN Reason: Keep Vein Open Last Admin: 04/21/17 17:10 Dose: 10 ml Warfarin Sodium (Coumadin) 5 mg PO DAILY@1300 [facility] Discontinued Medications Albuterol/Ipratropium (Duoneb 3.0-0.5 Mg/3 Ml) 3 ml NEB QID [facility] Last Admin: 04/21/17 21:34 Dose: 3 ml Bumetanide (Bumex) 4 mg IVPUSH ONETIME ONE Stop: 04/22/17 09:01 Furosemide (Lasix) 60 mg IVPUSH ONETIME ONE Stop: 04/21/17 16:28 Last Admin: 04/21/17 17:10 Dose: 60 mg Furosemide (Lasix) 40 mg PO BID [facility] Last Admin: 04/21/17 21:30 Dose: 40 mg Furosemide (Lasix) 40 mg PO BIDDIURETIC [facility] Last Admin: 04/22/17 08:24 Dose: 40 mg Levofloxacin/Dextrose 750 mg/ (Premix) 150 mls @ 100 mls/hr IV ONETIME ONE Stop: 04/21/17 22:16 Last Admin: 04/21/17 21:25 Dose: 100 mls/hr Warfarin Sodium (Coumadin) 5 mg PO DAILY [facility] - Exam Quality Assessment: Supplemental Oxygen General: Alert, Cooperative, Mild Distress Lungs: Clear to Auscultation, Normal Respiratory Effort Cardiovascular: Regular Rate, Regular Rhythm, No Murmurs GI/Abdominal Exam: Normal Bowel Sounds, Soft, Non-Tender, No Organomegaly, No Distention Extremities: Non-Tender, No Pedal Edema Skin: Warm, Dry, Intact - Problem List Review Problem List Initiated/Reviewed/Updated: Yes - My Orders Last 24 Hours: My Active Orders 04/22/17 10:00 methylPREDNISolone Sod Succ [Solu-MEDROL] 40 mg IVPUSH Q12H 04/23/17 05:00 BASIC METABOLIC PANEL,BMP [CHEM] Timed CBC WITH AUTO DIFF [HEME] Timed - Plan Plan:: ASSESSMENT / PLAN Pneumonia-probable right lung infiltrate on chest x-ray, also component of fluid overload -saline lock -IV Antibiotic; Levaquin 750mg IV once, plan to start 500 mg IV every 48 hours tomorrow -Duonebs scheduled -Albuterol nebs every 4 hours prn shortness of breath, wheezing -Robitussin DM 10 ml every 4 hours prn cough -blood cultures x2 pending CKD stage V, GFR <10 -Bumex 4 mg IV today -Family declines dialysis, requesting medical management, will discuss further with family later today, consider comfort cares only Congestive Heart Failure-evidence of significant fluid overload and pulmonary edema on initial evaluation, complicated by her severe kidney dysfunction -Bumex 4 mg IV today -Telemetry -continuous oxygen via [place] to keep sats>92% Anemia due to CKD -Iron po bid -recheck CBC, BMP in am -Consider transfusion of one unit of red blood cells Maintenance issues -Orders home meds: -Nutrition: Regular diet, Boost supplement daily -Chiang catheter not indicated at this time -DVT: current Coumadin Therapy -PPI; IV Protonix 40mg daily CODE STATUS: DNR/DNI, will discuss Comfort Care with MD in am Admission status: Admit to ICU Med-Surg overflow] Admission justification. This patient is admitted for inpatient services and is medically appropriate meeting medical necessity for inpatient admission as outlined in my documentation. I reasonably expect the patient will require inpatient services that span a period of over 2 midnights. I reasonably expect the patient to be discharged or transferred within 96 hours after admission to the [facility]. Disposition; Assisted Living or Sn[facility] Primary care provider: Dr. Brennan Hospitalist: Dr. Espino
[2017-04-22] MEDS: methylPREDNISolone Sodium Succinate 40 MG/1 ML SDV IVPUSH SCH ×2 (10:48→21:49)
[2017-04-22] MEDS ORDERED: LORazepam 1 MG Tab PO PRN (21:12)
[2017-04-22] MEDS ORDERED: Haloperidol Lactate 5 MG/ML SDV IV PRN (21:17)
--- NOTE | 2017-04-22 21:28 | PCM.SN ---
- Free Text/Narrative Note: call from [address] [place] [address]; Mrs. Middleton is agitated, requesting to smoke a cigarette, wanting to leave, will take medication to relax her. a; tobacco dependence p; declines nicotine patch. will order Haldol 1 mg IV every 2 hours prn agitation. monitor closely. May need to adjust dose dependent on response to medication.
[2017-04-23] MEDS: Albuterol/Ipratropium 3.0-0.5 MG/3 ML Neb Soln NEB SCH ×3 (07:07→14:48)
[2017-04-23] MEDS: Midodrine 5 MG Tab PO SCH ×2 (07:32→10:44)
[2017-04-23] MEDS: Ferrous Sulfate 325 MG Tab PO SCH (07:32)
[2017-04-23 07:58] VITALS: BP 102/58
[2017-04-23] MEDS: Pentoxifylline 400 MG Tab.ER PO SCH (08:29)
[2017-04-23] MEDS: Pantoprazole 40 MG Vial IVPUSH SCH (08:29)
[2017-04-23] MEDS: Citalopram 20 MG Tab PO SCH (08:30)
[2017-04-23] MEDS: Lidocaine 5% 700 MG Patch TOP SCH (08:30)
[2017-04-23] MEDS: Acetaminophen/Codeine 300-30 MG Tab PO SCH (08:35)
[2017-04-23] MEDS: methylPREDNISolone Sodium Succinate 40 MG/1 ML SDV IVPUSH SCH (10:44)
[2017-04-23] MEDS ORDERED: Levofloxacin/Dextrose 5%-Water 500 MG in Premix Bag 1 BAG IV SCH (12:00)
[2017-04-23] MEDS ORDERED: Warfarin 2.5 MG Tab PO SCH (13:00)
--- NOTE | 2017-04-23 14:39 | PCM.DCSUM1 ---
Discharge Summary - Hospital Course Brief History: Ms. Middleton is a 77-year-old woman who was admitted through the emergency department with pulmonary edema and hypoxia secondary to COPD, pneumonia, CHF, and stage IV chronic kidney disease. - Discharge Data Discharge Date: 04/23/17 Discharge Disposition: Home, [facility] 06 Condition: Fair - Discharge Diagnosis/Problem(s) (1) Cystitis SNOMED Code(s): 25942593 ICD Code: N30.90 - CYSTITIS, UNSPECIFIED WITHOUT HEMATURIA Status: Acute Current Visit: Yes (2) Palliative care status SNOMED Code(s): 542891895 ICD Code: Z51.5 - ENCOUNTER FOR PALLIATIVE CARE Status: Acute Current Visit: Yes (3) CKD (chronic kidney disease) stage 5, GFR less than 15 ml/min SNOMED Code(s): 470497161 ICD Code: N18.5 - CHRONIC KIDNEY DISEASE, STAGE 5 Status: Acute Priority : High Current Visit: Yes (4) CHF (congestive heart failure) SNOMED Code(s): 24563648 ICD Code: I50.9 - HEART FAILURE, UNSPECIFIED Status: Acute Priority: High Current Visit: Yes Qualifiers: Congestive heart failure type: unspecified congestive heart failure type Congestive heart failure chronicity: acute on chronic Qualified Code(s): I50.9 - Heart failure, unspecified - Patient Summary/Data Hospital Course: Ms. Middleton is a 77-year-old woman with a known history of stage V chronic kidney disease, she is decided not to pursue dialysis and has been discharged from the care of her pulmonology physician. Over the past few weeks she has lost strength and become more short of breath with progressive weakness. She was brought in for evaluation because of hypoxia identified at her assisted living facility. Chest x-ray showed evidence of pulmonary edema as well as a probable infiltrate, white blood cell count has been normal and she is had not had significant temperature elevation. There was also question of possible urinary tract infection. Her creatinine at the time of admission was 5.2 with a GFR of 8. She was given IV diuretic therapy in the emergency department and started on IV antibiotic therapy with levofloxacin. Because of evidence of COPD exacerbation related to the infection she was given nebulizer therapy and also started on IV Solu-Medrol. Symptomatically she improved significantly with these interventions she was given a dose of IV diuretic therapy the following day as well. She continued to experience hypoxia but denied symptoms of shortness of breath. Hospital course was complicated by her dementia and intermittent episodes of agitation. I discussed ongoing care with her daughter who is the healthcare power of office administrative assistant. Patient is unable to make decisions for herself because of significant dementia. Daughter has requested a palliative care approach, it is not yet ready to consider hospice admission. She will be discharged home with supplemental oxygen. She has been on long-term anticoagulation with warfarin, INR was supratherapeutic at the time of admission , but was within desired range on discharge. Dose of warfarin will be decreased to 2.5 mg by mouth daily as long as she is on the levofloxacin and a follow-up INR will need to be obtained on April 25. The time of discharge we will discontinue her oral furosemide and she will go home on Bumex 4 mg by mouth daily. Levofloxacin will be continued for an additional 4 days, 500 mg every other day. She will be discharged with nebulizer therapy duo nebs every 4 hours as needed and prednisone 40 mg daily for 4 days. Home care will be arranged for her at the time of discharge with home physical therapy and occupational therapy. Activity will be as tolerated and she is encouraged to follow a low-sodium diet. Follow-up appointment will be scheduled with her primary care provider within one week. - Patient Instructions Diet: Low Sodium Activity: As Tolerated Other/Special Instructions: Schedule follow-up with primary care within 1 week. Please arrange for home care with home physical therapy and occupational therapy after discharge. Please arrange for home oxygen 3 L/m via nasal cannula. Patient should continue lower dose of warfarin at 2.5 mg daily until after she is completed Lovenox therapy. Please schedule INR to be checked on April 25. - Discharge Plan Prescriptions/Med Rec: Albuterol/Ipratropium [DuoNeb 3.0-0.5 MG/3 ML] 3 ml INH Q4H PRN #120 neb PRN Reason: Dyspnea Bumetanide [Bumex] 4 mg PO DAILY #60 tablet Levofloxacin [Levaquin] 500 mg PO Q48H #2 tablet Prednisone [IJD: predniSONE] 40 mg PO WITHBREAKFAST #8 tab Home Medications: Home Meds Aspirin 81 mg PO QAM 04/29/13 [History] Calcitonin,Nu [place],Synthetic [Calcitonin-Nu Mine] 1 spray RICHIE QAM 04/29/13 [ History] Rosuvastatin [Crestor] 40 mg PO BEDTIME 04/29/13 [History] Nitroglycerin [Nitrostat] 0.4 mg PO ASDIRECTED PRN 01/29/15 [History] Citalopram Hydrobromide [Celexa] 20 mg PO QAM 04/23/15 [History] Mv-Mn/FA/Vit K/Lycop/Lut/Zeaxa [Ocuvite Eye + Multi Tablet] 1 tab PO QAM [History] Ferrous Sulfate [Slow Release Iron] 325 mg PO BID 03/07/16 [History] Lidocaine 5% [Lidoderm 5%] 1 patch TOP DAILY 03/07/16 [History] Polyethylene Glycol 3350 [MiraLAX] 17 g PO DAILY PRN 03/07/16 [History] Sennosides/Docusate Sodium [Sennalax-S] 1 tab PO DAILY PRN 03/07/16 [History] Ondansetron [Zofran ODT] 4 mg PO Q8H PRN 06/03/16 [History] Acetaminophen [Acetaminophen Extra Strength] 1,000 mg PO Q8H PRN 09/19/16 [ History] Calcium Carbonate/Vitamin D3 [Calcium 600 + Vit D Tablet] 1 tab PO BID 09/19/16 [History] guaiFENesin/Dextromethorphan [Mucus Relief DM] 1 tab PO Q4H PRN 09/19/16 [ History] Acetaminophen with Codeine [Tylenol with Codeine #3 Tablet] 1 tab PO BID [History] Acetaminophen with Codeine [Tylenol with Codeine #3 Tablet] 1 tab PO Q4H PRN 08/16 [History] Midodrine 5 mg PO TIDAC 02/24/17 [History] Pentoxifylline [TRENtal] 400 mg PO DAILY 02/24/17 [History] Ranitidine HCl 150 mg PO DAILY 02/24/17 [History] Albuterol/Ipratropium [DuoNeb 3.0-0.5 MG/3 ML] 3 ml INH Q4H PRN #120 neb [Rx] Bumetanide [Bumex] 4 mg PO DAILY #60 tablet 04/23/17 [Rx] Levofloxacin [Levaquin] 500 mg PO Q48H #2 tablet 04/23/17 [Rx] Prednisone [IJD: predniSONE] 40 mg PO WITHBREAKFAST #8 tab 04/23/17 [Rx] Warfarin [Coumadin] 2.5 mg PO DAILY@1300 tablet 04/23/17 [Rx] Referrals: Nehemiah Brennan MD [Primary Care Provider] - - Patient Data Vitals - Most Recent: Last Vital Signs Temp 96.3 F 04/23/17 07:55 Pulse 66 04/23/17 10:51 Resp 16 04/23/17 07:55 BP 102/58 L 04/23/17 07:55 Pulse Ox 93 L 04/23/17 13:34 Weight - Most Recent: 107 lb 9.369 oz I&O - Last 24 hours: Intake & Output 04/22/17 04/23/17 04/23/17 22:59 06:59 14:59 Intake Total 880 660 Output Total 1450 650 Balance -570 -650 660 Lab Results - Last 24 hrs: Laboratory Results - last 24 hr 04/23/17 04/23/17 04/23/17 Range/Units 05:52 05:52 05:52 WBC 8.9 (4.5-11.0) K/uL RBC 2.64 L (3.30-5.50) M/uL Hgb 8.6 L (12.0-15.0) g/dL Hct 25.7 L (36.0-48.0) % MCV 97 (80-98) fL MCH 33 H (27-31) pg MCHC 34 (32-36) % Plt Count 212 (150-400) K/uL Neut % (Auto) 95 H (36-66) % Lymph % (Auto) 3 L (24-44) % [place] % (Auto) 2 (2-6) % Eos % (Auto) 0 L (2-4) % Baso % (Auto) 0 (0-1) % PT 27.1 H (9.5-12.0) sec INR 2.44 H (0.80-1.20) Sodium 127 L (140-148) mmol/L Potassium 4.0 (3.6-5.2) mmol/L Chloride 90 L (100-108) mmol/L Carbon Dioxide 28 (21-32) mmol/L Anion Gap 13.0 (5.0-14.0) mmol/L BUN 89 H* (7-18) mg/dL Creatinine 4.8 H* (0.6-1.0) mg/dL Est Cr Clr Drug Dosing 7.27 mL/min Estimated GFR (MDRD) 9 L (>60) Glucose 147 H (74-106) mg/dL Calcium 9.1 (8.5-10.1) mg/dL Med Orders - Current: Current Medications Acetaminophen (Tylenol) 650 mg PO Q4H PRN PRN Reason: Pain (Mild 1-3)/fever Acetaminophen/Codeine Phosphate (Tylenol With Codeine No.3 300mg/30mg) 1 tab PO BID [facility] Last Admin: 04/23/17 08:35 Dose: 1 tab Acetaminophen/Codeine Phosphate (Tylenol With Codeine No.3 300mg/30mg) 1 tab PO Q4H PRN PRN Reason: Pain Last Admin: 04/22/17 14:53 Dose: 1 tab Albuterol (Proventil Neb Soln) 2.5 mg NEB Q4H PRN PRN Reason: Shortness Of Breath/wheezing Albuterol/Ipratropium (Duoneb 3.0-0.5 Mg/3 Ml) 3 ml NEB QIDRT [facility] Last Admin: 04/23/17 10:51 Dose: 3 ml Bisacodyl (Dulcolax) 5 mg PO DAILY PRN PRN Reason: Constipation Citalopram Hydrobromide (Celexa) 20 mg PO DAILY [facility] Last Admin: 04/23/17 08:30 Dose: 20 mg Docusate Sodium (Colace) 100 mg PO BID PRN PRN Reason: Constipation Ferrous Sulfate (Ferrous Sulfate) 325 mg PO BIDMEALS [facility] Last Admin: 04/23/17 07:32 Dose: 325 mg Guaifenesin/Dextromethorphan (Robitussin Dm) 10 ml PO Q4H PRN PRN Reason: Cough Haloperidol Lactate (Haldol) 1 mg IV Q2H PRN PRN Reason: Agitation Last Admin: 04/22/17 21:49 Dose: 1 mg Levofloxacin/Dextrose 500 mg/ (Premix) 100 mls @ 100 mls/hr IV Q48H [facility] Last Admin: 04/23/17 13:35 Dose: 100 mls/hr Lidocaine (Lidoderm 5%) 700 mg TOP DAILY [facility] Last Admin: 04/23/17 08:30 Dose: 700 mg Methylprednisolone Sodium Succinate (Solu-Medrol) 40 mg IVPUSH Q12H [facility] Last Admin: 04/23/17 10:44 Dose: 40 mg Midodrine (Midodrine) 5 mg PO TIDAC [facility] Last Admin: 04/23/17 10:44 Dose: 5 mg Miscellaneous Information (Remove Patch) 1 ea TRDERM BEDTIME [facility] Last Admin: 04/22/17 20:30 Dose: Not Given Ondansetron HCl (Zofran Odt) 4 mg PO Q6H PRN PRN Reason: Nausea able to take PO Ondansetron HCl (Zofran) 4 mg IV Q4H PRN PRN Reason: Nausea/Vomiting Last Admin: 04/22/17 21:56 Dose: 4 mg Pantoprazole Sodium (Protonix Iv) 40 mg IVPUSH DAILY [facility] Last Admin: 04/23/17 08:29 Dose: 40 mg Pentoxifylline (Trental) 400 mg PO DAILY [facility] Last Admin: 04/23/17 08:29 Dose: 400 mg Polyethylene Glycol (Miralax) 17 gm PO DAILY PRN PRN Reason: Constipation Sodium Chloride (Saline Flush) 10 ml FLUSH ASDIRECTED PRN PRN Reason: Keep Vein Open Last Admin: 04/21/17 17:10 Dose: 10 ml Warfarin Sodium (Coumadin) 2.5 mg PO DAILY@1300 [facility] Last Admin: 04/23/17 13:41 Dose: 2.5 mg Discontinued Medications Albuterol/Ipratropium (Duoneb 3.0-0.5 Mg/3 Ml) 3 ml NEB QID [facility] Last Admin: 04/21/17 21:34 Dose: 3 ml Bumetanide (Bumex) 4 mg IVPUSH ONETIME ONE Stop: 04/22/17 09:01 Last Admin: 04/22/17 10:48 Dose: 4 mg Furosemide (Lasix) 60 mg IVPUSH ONETIME ONE Stop: 04/21/17 16:28 Last Admin: 04/21/17 17:10 Dose: 60 mg Furosemide (Lasix) 40 mg PO BID [facility] Last Admin: 04/21/17 21:30 Dose: 40 mg Furosemide (Lasix) 40 mg PO BIDDIURETIC [facility] Last Admin: 04/22/17 08:24 Dose: 40 mg Levofloxacin/Dextrose 750 mg/ (Premix) 150 mls @ 100 mls/hr IV ONETIME ONE Stop: 04/21/17 22:16 Last Admin: 04/21/17 21:25 Dose: 100 mls/hr Lorazepam (Ativan) 1 mg PO Q6H PRN PRN Reason: Anxiety Warfarin Sodium (Coumadin) 5 mg PO DAILY [facility] Warfarin Sodium (Coumadin) 5 mg PO DAILY@1300 [facility] *Q Meaningful Use (DIS) - VTE *Q VTE Criteria *Q: - Stroke *Q Stroke Criteria *Q: - AMI *Q AMI Criteria *Q:
--- NOTE | 2017-04-24 10:59 | CR ---
Chest 2V INDICATION: sob COMPARISON: 11/20/2016 FINDINGS: Two views. Cardiomegaly and sternotomy again noted. Mild vascular congestion. Moderate r ight pleural effusion. No left pleural effusion. Ascending aorta upper limits of normal at 4 cm. IMPRESSION: CHF.
== END 2017-04-23 16:15 | disposition home health service (06) | DRG 291 ==
LOC: JP.ED 15:57 → JP.ICU 19:44 → JP.MS 04-22 16:50
PROVIDERS: ADMIT Hospitalist; ATTEND Hospitalist
DX: I13.2 Hypertensive heart and chronic kidney disease with heart failure and with stage 5 chronic kidney disease, or end stage renal disease (principal); N18.6 End stage renal disease; J18.9 Pneumonia, unspecified organism; J44.0 Chronic obstructive pulmonary disease with (acute) lower respiratory infection; J44.1 Chronic obstructive pulmonary disease with (acute) exacerbation; I50.9 Heart failure, unspecified; F17.210 Nicotine dependence, cigarettes, uncomplicated; R09.02 Hypoxemia; I48.91 Unspecified atrial fibrillation; Z66 Do not resuscitate; Z51.5 Encounter for palliative care; Z95.2 Presence of prosthetic heart valve; D63.1 Anemia in chronic kidney disease; F03.90 Unspecified dementia, unspecified severity, without behavioral disturbance, psychotic disturbance, mood disturbance, and anxiety; Z79.01 Long term (current) use of anticoagulants; N30.90 Cystitis, unspecified without hematuria; Z99.81 Dependence on supplemental oxygen; R45.1 Restlessness and agitation; Z95.1 Presence of aortocoronary bypass graft; F41.9 Anxiety disorder, unspecified; Z86.73 Personal history of transient ischemic attack (TIA), and cerebral infarction without residual deficits; M19.90 Unspecified osteoarthritis, unspecified site; M54.9 Dorsalgia, unspecified; G89.29 Other chronic pain; K21.9 Gastro-esophageal reflux disease without esophagitis; E78.00 Pure hypercholesterolemia, unspecified; I25.10 Atherosclerotic heart disease of native coronary artery without angina pectoris; H54.7 Unspecified visual loss; Z79.82 Long term (current) use of aspirin; Z79.52 Long term (current) use of systemic steroids; Z91.041 Radiographic dye allergy status; Z88.5 Allergy status to narcotic agent; Z88.8 Allergy status to other drugs, medicaments and biological substances
CPT/HCPCS: 36415; 36600; 71020; 80053; 82803; 83880; 85025; 87040 ×2; 87070; 87077; 87205; 93005; 96374; 99285; J1940; J7050; 80048; 81001; 85610; 93010; 94640; 94762; A9270-GY; C9113; J1630; J1956; J2405; J2920; J7620; S0171